=== PATIENT | male | born 1985 | race Caucasian/White ===

== ENCOUNTER 2024-02-03 12:49 | Outpatient (REF) | payer OTHER, SELFPAY ==
[2024-02-03 18:53] LABS: Influenza A PCR NEGATIVE (Negative); Influenza B PCR NEGATIVE (Negative); Resp Syncy Virus RNA Qual PCR NEGATIVE (Negative); SARS COV2 PCR INHOUSE NEGATIVE (Negative)
== END 2024-02-03 12:50 | disposition home or self-care (01) ==
LOC: HO.CHCLNP 12:49
PROVIDERS: Visit Provider Family Medicine
DX: Z11.52 Encounter for screening for COVID-19 (principal); B37.0 Candidal stomatitis; J45.20 Mild intermittent asthma, uncomplicated
CPT/HCPCS: 0241U; 87070; 87147

== ENCOUNTER 2024-03-28 08:50 | Outpatient (REF) | payer MEDICARE, SELFPAY ==
[2024-03-28 14:15] LABS: MANUAL DIFF FLAG NO
[2024-03-28 14:25] LABS: Basophils Percent Auto 0.8 % (0-2); Eosinophils Absolute Auto 0.4 X10*3/uL (0.0-0.4); Eosinophils Percent Auto 8.6 % (0-4); Hemoglobin 14.2 g/dl (14.0-18.0); Imm Gran Abs Auto 0.01 X10*3/uL (0.00-0.03); Imm Gran Pct Auto 0.2 % (0.0-0.4); Lymphocytes Absolute Auto 1.7 X10*3/uL (1.2-4.9); Lymphocytes Percent Auto 33.2 % (20-40); Mean Corpuscular Hemoglobin 28.5 pg (27.0-33.0); Mean Corpuscular Volume 86.3 fL (80.0-98.0); Mean Platelet Volume 9.5 fL (9.4-12.4); Monocytes Absolute Auto 0.4 X10*3/uL (0.1-1.2); Monocytes Percent Auto 6.8 % (2-11); Neutrophils Absolute Auto 2.6 x10*3/uL (2.0-8.3); Neutrophils Percent Auto 50.4 % (45-73); Platelet Count 228 X10*3/uL (160-400); Red Blood Count 4.98 X10*6/uL (4.60-5.80); Red Cell Distribution Width 13.6 % (11.0-16.0); White Blood Count 5.1 X10*3/uL (4.8-10.8)
[2024-03-28 15:06] LABS: Alanine Aminotransferase 24 U/L (0-40); Albumin Level 4.2 g/dL (3.5-5.0); Alkaline Phosphatase 76 U/L (39-117); Anion Gap 13 (12-20); Aspartate Amino Transferase 16 U/L (5-37); Bilirubin Total 0.5 mg/dL (0.0-1.0); Blood Urea Nitrogen 10 mg/dL (9-16); Calcium 9.7 mg/dL (8.4-10.2); Carbon Dioxide 28 mmol/L (22-29); Chloride 102 mmol/L (96-108); Cholesterol 209 mg/dL (<200); Estimated Glomerular Filt Rate > 60; Glucose Random 76 mg/dL (60-115); HDL Cholesterol 50 mg/dL (>40); LDL Cholesterol Calculated 132 mg/dL (<100); Potassium 4.2 mmol/L (3.3-5.1); Sodium 139 mmol/L (135-145); Total Protein 7.3 g/dL (6.5-8.0); Triglycerides 136 mg/dL (<150)
[2024-03-28 15:23] LABS: TSH reflex Free T4 2.61 uIU/mL (0.32-4.0)
== END 2024-03-28 08:51 | disposition home or self-care (01) ==
LOC: HO.CHCLDS 08:50
PROVIDERS: Visit Provider Internal Medicine
DX: L40.9 Psoriasis, unspecified (principal); E66.01 Morbid (severe) obesity due to excess calories; I10 Essential (primary) hypertension; K21.00 Gastro-esophageal reflux disease with esophagitis, without bleeding
CPT/HCPCS: 36415; 80053; 80061; 84443; 85025

== ENCOUNTER 2024-04-12 10:48 | Outpatient (REF) | payer MEDICARE, SELFPAY ==
[2024-04-15 07:19] LABS: TS Negative Control Passed; TS Panel A 0; TS Panel B 0; TS Positive Control Passed; TSpotTB Negative (Negative)
== END 2024-04-12 10:49 | disposition home or self-care (01) ==
LOC: HO.CHCLDS 10:48
PROVIDERS: Visit Provider Pediatrics
DX: R05.8 Other specified cough (principal)
CPT/HCPCS: 36415; 86481

== ENCOUNTER 2024-04-19 10:02 | Emergency (ER) | payer MEDICARE, SELFPAY ==
--- NOTE | ~2024-04-19 | XR_ITS ---
EXAMINATION: XR CHEST 2 VIEW CLINICAL INFORMATION: Shortness of breath COMPARISON: None TECHNIQUE: PA and lateral views of the chest obtained. FINDINGS: The lungs are clear. There are no pleural effusions. The cardiomediastinal silhouette is normal. XR/XR chest 2V IMPRESSION: No acute cardiopulmonary disease.
--- NOTE | ~2024-04-19 | CT_ITS ---
EXAMINATION: CT ANGIOGRAM OF THE CHEST WITH AND WITHOUT CONTRAST (CT PULMONARY ANGIOGRAM FOR PE) CLINICAL INFORMATION: Reason for Exam sob, cough, pleuritic cp COMPARISON: None available. TECHNIQUE: Prior to contrast administration, noncontrast localization images were obtained. Subsequently, multidetector volumetric imaging was performed from the thoracic inlet to below the diaphragms following the administration of 65b mL Omnipaque 350 intravenous contrast. No contrast reaction reported Sagittal, coronal, and MIP oblique sagittal reformatted images were obtained on the CT workstation, uploaded to PACS, and reviewed. This CT examination was performed using dose optimization techniques as appropriate, variously including the following: *Automated exposure control *Adjustment of mA and/or kV according to patient size (this includes techniques or standardized protocols for targeted exams where dose is matched to indication/reason for exam; i.e. extremities or head) *Use of iterative reconstruction technique Total exam dose-length product 373 mGy-cm FINDINGS: QUALITY OF STUDY/CONTRAST BOLUS: Satisfactory. PULMONARY ARTERIES: No pulmonary emboli. THORACIC AORTA: No aneurysm. LUNG: There is a 4 mm right lower lobe nodule (7:178). No focal consolidation, worrisome nodules or masses. PLEURA: No pleural effusion or pneumothorax. MEDIASTINUM: Normal heart size. No pericardial effusion. No hilar or mediastinal lymphadenopathy. No evidence of septal bowing or right heart strain. CORONARY ARTERY CALCIFICATION: None visualized on this study. CHEST WALL/AXILLA: No axillary or internal mammary lymphadenopathy. OSSEOUS STRUCTURES: No acute or suspicious osseous abnormality. UPPER ABDOMEN: Unremarkable. No reflux of contrast into the hepatic veins to suggest elevated right heart pressures. CT/CT angio chest PE protocol IMPRESSION: 1. No evidence of pulmonary emboli. 2. Incidental note made of a 4 mm right lower lobe nodule. No follow-up should be necessary. VTE: negative. According to the UPDATED 2017 Fleischner Society recommendations, the advised follow-up imaging for solid nodules <6 mm in the middle/lower lobes is no routine follow up.
--- NOTE | 2024-04-19 10:04 | ECG_ITS ---
Test Reason : chest pain Blood Pressure : / mmHG Vent. Rate : 076 BPM Atrial Rate : 076 BPM P-R Int : 140 ms QRS Dur : 078 ms QT Int : 366 ms P-R-T Axes : 031 -29 026 degrees QTc Int : 411 ms Normal sinus rhythm Normal ECG No previous ECGs available Referred By: Generic ED Physician Electronically Signed By:ORTIZ WADE
[2024-04-19 10:08] VITALS: BP 126/72; PULSE 92; RESP 16; TEMP 36.5; BMI 41.3
[2024-04-19 10:26] LABS: MANUAL DIFF FLAG NO
[2024-04-19 10:27] LABS: Basophils Percent Auto 0.3 % (0-2); Hematocrit 41.8 % (42.0-52.0); Hemoglobin 14.9 g/dl (14.0-18.0); Imm Gran Abs Auto 0.04 X10*3/uL (0.00-0.03); Imm Gran Pct Auto 0.4 % (0.0-0.4); Lymphocytes Absolute Auto 1.9 X10*3/uL (1.2-4.9); Lymphocytes Percent Auto 17.3 % (20-40); Mean Corpuscular HGB Conc 35.6 g/dl (31.0-36.0); Mean Corpuscular Hemoglobin 29.6 pg (27.0-33.0); Mean Corpuscular Volume 82.9 fL (80.0-98.0); Mean Platelet Volume 8.8 fL (9.4-12.4); Monocytes Percent Auto 8.8 % (2-11); Neutrophils Absolute Auto 8.1 x10*3/uL (2.0-8.3); Neutrophils Percent Auto 73.2 % (45-73); Platelet Count 258 X10*3/uL (160-400); Red Blood Count 5.04 X10*6/uL (4.60-5.80); Red Cell Distribution Width 13.6 % (11.0-16.0); White Blood Count 11.1 X10*3/uL (4.8-10.8)
--- NOTE | 2024-04-19 10:36 | ED_ITS ---
HPI - Chest Pain General Chief Complaint: Chest Pain Stated Complaint: Chest pain/SOB Time Seen by Provider: 04/19/24 10:30 Source: patient, RN notes reviewed and old records reviewed Mode of arrival: ambulatory History of Present Illness ED Provider: Olive Lundy PA-C [facility] narrative: 38-year-old male with past medical history of asthma presenting to the ED complaining of persistent productive cough of pink tinged sputum, SOB, and CP worse with deep inspiration x2 weeks. Admits to seen PCP twice, initially prescribed Z-Andrew and 5 days of prednisone without relief, saw provider again yesterday prescribed Levaquin and Medrol pack which he is currently taking. Admits to outpatient x-ray which was unremarkable. Denies cigarette smoking, recent travel, sick contacts, abdominal pain, pedal edema Related Data Allergies Allergy/AdvReac Type Severity Reaction Status Date / Time No Known Allergies Allergy Verified 04/19/24 10:11 Review of Systems 2 Review of Systems: Constitutional: No Fever, No Chills ENT/Mouth: No Ear Pain, No Nasal Congestion, No sore throat, No Rhinorrhea, No Swallowing Difficulty Cardiovascular: +Chest Pain, +SOB Respiratory: + Cough, +Sputum, No Wheezing Gastrointestinal: No Nausea, No Vomiting, No Diarrhea, No Constipation, No Abdominal pain Genitourinary: No Dysuria, No Urinary Frequency, No Hematuria Musculoskeletal: No joint pain, No Myalgias, No Joint Swelling Skin: No Skin Lesions, No rash Neuro: No Weakness, No Numbness, No Paresthesias Yes all other systems are reviewed and are negative Constitutional: Constitutional: Reports as per [facility] Past Medical History Attestation statement: The following information was validated with the patient. Source: old records reviewed Social History Social History Advance Directives: No Advance Directives Information Provided: Yes Physical Exam 2 Vital Signs: Vital Signs: Last Vital Signs Temp 98.6 F 04/19/24 16:20 Pulse 73 04/19/24 16:20 Resp 19 04/19/24 16:20 BP 122/75 04/19/24 16:20 Pulse Ox 96 04/19/24 16:20 O2 Del Method Room Air 04/19/24 16:20 BMI result Body Mass Index 41.3 Const: General: cooperative, healthy appearing and no acute distress O rientation/consciousness: patient oriented x3 Limitations: no limitations HEENT: Head: Yes normal to inspection and Yes atraumatic Ears: hearing grossly normal bilaterally General nose exam: Normal external nose present Face and sinus: Yes normal facial exam Eyes: General: appearance normal, both eyes and all related structures EOM: EOMs intact bilaterally Neck: Neck: Yes normal visual inspection and Yes no meningeal signs Resp: Effort & Inspection: normal respiratory effort and no respiratory distress Auscultation: clear to auscultation bilaterally, no crackles, no rales, no rhonchi and no wheezes Cardio: Rate: regular rate Heart sounds: S1 normal heart sound present and S2 normal heart sound present GI: Inspection: Yes normal to inspection Palpation (GI): Soft to palpation, nontender, no guarding and not rigid Skin: Rashes: no rashes Wounds: no wounds Neuro: General: patient oriented x3, tone normal and no meningeal signs C ranial nerves: Yes CN's II-XII intact bilaterally Gait exam (Neuro): Normal gait present Extrem: General: Yes normal to inspection, Yes no pedal edema and Yes no calf tenderness Course Course Course Narrative: -labs reassuring. Troponin negative. D-dimer WNL > patient reported to nurse has had 10 lb weight loss in the past week > due to persistent symptoms will obtain CT -viral studies negative CT angio chest PE protocol IMPRESSION: 1. No evidence of pulmonary emboli. 2. Incidental note made of a 4 mm right lower lobe nodule. No follow-up should be necessary. VTE: negative. According to the UPDATED 2017 Fleischner Society recommendations, the advised follow-up imaging for solid nodules <6 mm in the middle/lower lobes is no routine follow up. Results discussed with patient including worrisome signs and symptoms and strict return precautions, and when to return to the emergency department. They verbalized understanding and feel safe for discharge at this time. Medications Administered Discontinued Medications Generic Name Dose Route Start Last Admin Trade Name Freq PRN Reason Stop Dose Admin Iohexol 100 ml 04/19/24 13:41 04/19/24 13:42 Iohexol 350 Mg/Ml 100 Ml Infus..Btl IV 04/19/24 13:42 65 ml ONCE ONE Administration Medical Decision Making Medical Decision Making [facility] Narrative: 38-year-old male with past medical history of asthma presenting to the ED complaining of persistent productive cough of pink tinged sputum, SOB, and CP worse with deep inspiration x2 weeks. On exam vital signs stable, NAD, nontoxic appearing, talking in complete sentences, no respiratory distress, lungs CTA. No pedal edema. Concern for viral illness vs bronchitis vs pneumonia vs pulmonary embolism. Lower suspicion for ACS duration of symptoms, dissection, CHF, myocarditis/pericarditis Plan: EKG, labs, CXR, viral studies, re-evaluate Please refer to course for remaining clinical decision making, interpretation of labs/imaging results, and discussions with consultants and/or family members. Differential Diagnosis Differential Diagnoses: The differential diagnosis associated with the presentation includes As above Admission/Observation Consideration of admission/observation: Escalation of care including admission/observation considered Lab Data MDM Lab Attestation statement: I reviewed the patient's lab results. 04/19/24 10:21 04/19/24 10:21 Labs: Lab Results 04/19/24 04/19/24 Range/Units 10:21 11:05 WBC 11.1 H (4.8-10.8) X10*3/uL RBC 5.04 (4.60-5.80) X10*6/uL Hgb 14.9 (14.0-18.0) g/dl Hct 41.8 L (42.0-52.0) % MCV 82.9 (80.0-98.0) fL MCH 29.6 (27.0-33.0) pg MCHC 35.6 (31.0-36.0) g/dl RDW 13.6 (11.0-16.0) % Plt Count 258 (160-400) X10*3/uL MPV 8.8 L (9.4-12.4) fL Immature Gran % (Auto) 0.4 (0.0-0.4) % Neut % (Auto) 73.2 H (45-73) % Lymph % (Auto) 17.3 L (20-40) % Atlantic % (Auto) 8.8 (2-11) % Eos % (Auto) 0.0 (0-4) % Baso % (Auto) 0.3 (0-2) % Lymph # (Auto) 1.9 (1.2-4.9) X10*3/uL Atlantic # (Auto) 1.0 (0.1-1.2) X10*3/uL Eos # (Auto) 0.0 (0.0-0.4) X10*3/uL Baso # (Auto) 0.0 (0.0-0.2) X10*3/uL Abs Immat Gran (auto) 0.04 H (0.00-0.03) X10*3/uL Absolute Neuts (auto) 8.1 (2.0-8.3) x10*3/uL Absolute Nucleated RBC 0.000 (0.0-0.012) X10*3/uL Nucleated RBC % (auto) 0.0 (0.0-0.2) /100WBC D-Dimer High Sensitivty < 150 NG/ML Sodium 138 (135-145) mmol/L Potassium 4.0 (3.3-5.1) mmol/L Chloride 102 (96-108) mmol/L Carbon Dioxide 26 (22-29) mmol/L Anion Gap 14 (12-20) BUN 10 (9-16) mg/dL Creatinine 0.74 (0.5-1.4) mg/dL Estim Creat Clear Calc 156.7 Estimated GFR > 60 Random Glucose 133 H (60-115) mg/dL Calcium 10.4 H D (8.4-10.2) mg/dL Total Bilirubin 0.6 (0.0-1.0) mg/dL Direct Bilirubin 0.2 (0.0-0.5) mg/dL AST 14 (5-37) U/L ALT 19 (0-40) U/L Alkaline Phosphatase 73 (39-117) U/L Troponin I High Sens < 2.7 (<3.5-35.0) ng/L B-Natriuretic Peptide 12 (<100) pg/mL Total Protein 7.6 (6.5-8.0) g/dL Albumin 4.5 (3.5-5.0) g/dL Influenza Type A (PCR) NEGATIVE (Negative) Influenza Type B (PCR) NEGATIVE (Negative) RSV RNA Qual (PCR) NEGATIVE (Negative) SARS-CoV-2 RNA (RT-PCR) NEGATIVE (Negative) Independent Interpretation I performed an independent interpretation of an: EKG (My interpretation EKG normal sinus rhythm rate of 76. MN interval 140. QTC 411. No STEMI. Nonischemic) Radiology Impression Discussion of test interpretation with radiology: I have reviewed the radiologist's reading. External Record Review External record reviewed: Inpatient record, Office record, Outpatient record, Prior outpatient labs, Prior outpatient radiology, Primary care record and Outside ED record Tests considered The following testing was considered but not selected: As above Chronic Conditions Patient?s care impacted by: Other (Asthma) Discharge Plan Discharge Clinical Impression: Bronchitis Patient Disposition: Home, Self-Care Instructions: Acute Bronchitis (ED) Additional Instructions: Your blood work and CT scan are reassuring You do have a pulmonary nodule that does not require follow-up, however please make your PCP aware Please follow-up with her primary care doctor, you can continue previously prescribed medications If symptoms persist or worsen return to the emergency department Referrals: [facility] [place] Group] Susie Li MD [Primary Care Provider] - 5 days Interventions: ED Discharge Assessment Last Done: 04/19/24 16:20 Discharge Date/Time: 04/19/24 16:23 Print Language: Bel[place]ian
[2024-04-19 10:44] LABS: Alanine Aminotransferase 19 U/L (0-40); Albumin Level 4.5 g/dL (3.5-5.0); Alkaline Phosphatase 73 U/L (39-117); Anion Gap 14 (12-20); Aspartate Amino Transferase 14 U/L (5-37); Bilirubin Direct 0.2 mg/dL (0.0-0.5); Bilirubin Total 0.6 mg/dL (0.0-1.0); Blood Urea Nitrogen 10 mg/dL (9-16); Calcium 10.4 mg/dL (8.4-10.2); Carbon Dioxide 26 mmol/L (22-29); Chloride 102 mmol/L (96-108); Creatinine Clr Calc Pharmacy 156.7; Estimated Glomerular Filt Rate > 60; Glucose Random 133 mg/dL (60-115); Sodium 138 mmol/L (135-145); Total Protein 7.6 g/dL (6.5-8.0)
[2024-04-19 10:53] LABS: Troponin-I High Sensitivity < 2.7 ng/L (<3.5-35.0)
--- NOTE | 2024-04-19 10:53 | PC.NURSE ---
pt to xray at this time.
[2024-04-19 11:04] LABS: Influenza A PCR NEGATIVE (Negative); Influenza B PCR NEGATIVE (Negative); Resp Syncy Virus RNA Qual PCR NEGATIVE (Negative); SARS COV2 PCR INHOUSE NEGATIVE (Negative)
--- NOTE | 2024-04-19 11:10 | PC.NURSE ---
20gIV placed in the right AC - labs obtained/sent to lab. pt verbalizing he forgot to tell provider that he has noticed a 10lb weight loss x 1 week. provider notified/aware. pt waiting for xray results at this time. plan of care ongoing. call perera placed within reach.
[2024-04-19 11:19] LABS: B Type Natriuretic Peptide 12 pg/mL (<100)
[2024-04-19 11:34] LABS: D Dimer High Sensitivity < 150 NG/ML
[2024-04-19 12:00] VITALS: BP 114/63; PULSE 69; RESP 13; O2SAT 96
--- NOTE | 2024-04-19 13:30 | PC.NURSE ---
pt having CTA completed at this time. plan of care ongoing.
[2024-04-19] MEDS: iohexoL 350 MG/ML 100 ML INFUS..BTL IV (13:42)
[2024-04-19 16:18] VITALS: BP 122/75; PULSE 73; RESP 19; TEMP 37; O2SAT 96
[2024-04-19 16:20] VITALS: BP 122/75; PULSE 73; RESP 19; TEMP 37; O2SAT 96
== END 2024-04-19 16:23 | disposition home or self-care (01) ==
PROVIDERS: Physician Assistant; Emergency Provider Emergency Medicine; PCP Internal Medicine
DX: J40 Bronchitis, not specified as acute or chronic (principal); R05.9 Cough, unspecified; R06.02 Shortness of breath; R07.9 Chest pain, unspecified
CPT/HCPCS: 0241U; 36415; 71046; 71275; 80048; 80076; 83880; 84484; 85025; 85379; 93005; 99284; Q9967

== ENCOUNTER → 2024-04-19 10:04 | Outpatient (BNV) | payer MEDICARE, SELFPAY | PROVIDERS: Emergency Provider Emergency Medicine; PCP Internal Medicine; Visit Provider Internal Medicine | DX: R07.9 Chest pain, unspecified (principal) | CPT/HCPCS: 93010 ==